=== PATIENT | male | born 1985 | race Asian ===

== ENCOUNTER 2025-02-01 13:43 | Emergency (ER) | payer BC ==
[2025-02-01] MEDS ORDERED: ACETAMINOPHEN TAB 500 MG TAB PO STA (13:58)
[2025-02-01] MEDS: KETOROLAC 15 MG/ML 1 ML VIAL IM STA (14:05)
--- NOTE | 2025-02-01 14:07 | ED ---
General Adult HPI - General Chief complaint: Extremity Injury, Lower Stated complaint: Fall-Left Knee Pain Time Seen by Provider: 02/01/25 13:46 Source: patient, EMS, RN notes reviewed Mode of arrival: EMS Limitations: no limitations - History of Present Illness Initial comments: 39-year-old male presenting to the emergency department via EMS for complaints of left knee pain. Patient states that he was swinging on a swing set when he realized that his child was running behind him and instead of hitting his child he jumped off of the swing and relatively high height and landed on both of his knees. She states that when he landed he felt a popping sensation in his left knee. He denies falling, hitting his head, or loss of consciousness. Denies blood thinner use. States that he has not attempted to walk since the injury. - Related Data Allergies Allergy/AdvReac Type Severity Reaction Status Date / Time No Known Allergies Allergy Verified 02/01/25 13:58 Review of Systems ROS Statement: Those systems with pertinent positive or pertinent negative responses have been documented in the HPI. ROS Other: All systems not noted in ROS Statement are negative. Past Medical History Past Medical History: No Reported History History of Any Multi-Drug Resistant Organisms: None Reported Additional Past Surgical History / Comment(s): torn ligament repair in left pinky finger Past Psychological History: No Psychological Hx Reported Smoking Status: Former smoker Past Alcohol Use History: Occasional Past Drug Use History: None Reported General Exam Limitations: no limitations General appearance: alert, in no apparent distress ENT exam: Present: normal exam, mucous membranes moist Neck exam: Present: normal inspection. Absent: tenderness, meningismus, lymphadenopathy Respiratory exam: Present: normal lung sounds bilaterally. Absent: respiratory distress, wheezes, rales, rhonchi, stridor Cardiovascular Exam: Present: regular rate, normal rhythm, normal heart sounds. Absent: systolic murmur, diastolic murmur, rubs, gallop, clicks GI/Abdominal exam: Present: soft, normal bowel sounds. Absent: distended, tenderness, guarding, rebound, rigid Left Knee exam: Present: tenderness, swelling. Absent: full ROM, ecchymosis, deformity, crepitus, dislocation, erythema Neurovascular tendon exam: Present: no vascular compromise. Absent: pulse deficit Gait: not tested/not observed Back exam: Present: normal inspection Neurological exam: Present: alert, oriented X3, CN II-XII intact Course Vital Signs 02/01/25 02/01/25 13:48 15:04 Temperature 98.8 F Pulse Rate 80 72 Respiratory 17 17 Rate Blood Pressure 132/91 135/89 O2 Sat by Pulse 99 98 Oximetry Medical Decision Making - Medical Decision Making Was pt. sent in by a medical professional or institution (, [facility], [facility], urgent care, hospital, or fci...) When possible be specific @ -No Did you speak to anyone other than the patient for history (EMS, parent, family, police, friend...)? What history was obtained from this source @ -No Did you review nursing and triage notes (agree or disagree)? Why? @ -I reviewed and agree with nursing and triage notes Were old charts reviewed (outside hosp., previous admission, EMS record, old EKG, old radiological studies, urgent care reports/EKG's, fci records)? Report findings @ -No old charts were reviewed Differential Diagnosis (chest pain, altered mental status, abdominal pain women, abdominal pain men, vaginal bleeding, weakness, fever, dyspnea, syncope, headache, dizziness, GI bleed, back pain, seizure, CVA, palpatations, mental health, musculoskeletal)? @ -Differential Musculoskeletal Muscular strain, contusion, ligament sprain, fracture, arthritis, septic arthritis, bursitis, cellulitis, muscle spasm, nerve compression, DVT, arterial occlusion, herpes zoster, electrolyte abnormality, tumor.... This is not meant to be in all inclusive list EKG interpreted by me (3pts min.). @ -None X-rays interpreted by me (1pt min.). @ -X-ray of the left knee reveals a lateral tibial plateau fracture with 9 mm of displacement extension into the metaphysis CT interpreted by me (1pt min.). @ -None done U/S interpreted by me (1pt. min.). @ -None done What testing was considered but not performed or refused? (CT, X-rays, U/S, labs)? Why? @ -None What meds were considered but not given or refused? Why? @ -None Did you discuss the management of the patient with other professionals (professionals i.e. , [facility], [facility], lab, RT, psych nurse, social services counselor, iron bender, teacher, toxics program officer, rn case management)? Give summary @ -I spoke with on-call web application dev specialist, Dr. Sanchez, was recommended transfer to a trauma facility for further evaluation and treatment of the tibial plateau fracture. I spoke with Dr. Gil, at [facility], who has agreed to accept the patient as a transfer for further evaluation of a tibial plateau fracture. Was smoking cessation discussed for >3mins.? @ -No Was critical care preformed (if so, how long)? @ -No Were there social determinants of health that impacted care today? How? (Homelessness, low income, unemployed, alcoholism, drug addiction, transportation, low edu. Level, literacy, decrease access to med. care, [facility], rehab)? @ -No Was there de-escalation of care discussed even if they declined (Discuss DNR or withdrawal of care, Hospice)? DNR status @ -No What co-morbidities impacted this encounter? (DM, HTN, Smoking, COPD, CAD, Cancer, CVA, ARF, Chemo, Hep., AIDS, mental health diagnosis, sleep apnea, morbid obesity)? @ -None Was patient admitted / discharged? Hospital course, mention meds given and route, prescriptions, significant lab abnormalities, going to OR and other pertinent info. @ -Transferred. 39-year-old male presenting with left knee pain. Left knee is edematous on exam tenderness to the lateral knee. Unable to assess full range of motion. Pedal pulses 2+. Left lower extremity is warm to the touch. Patient's provided with IM dose of Toradol for pain relief. X-ray imaging is concerning for a Lateral tibial plateau fracture with 9 mm displacement and extension into the metaphysis. extension service specialist in charge, Dr. Sanchez, recommends transfer to trauma facility for further treatment. I spoke with ER attending at [facility], Dr. Gil, was agreed to accept the patient as a transfer for further evaluation. Case was discussed by attending Dr. Oneill. Patient is placed in an immobilizer prior to transfer. Patient is transferred via private vehicle. Undiagnosed new problem with uncertain prognosis? @ -No Drug Therapy requiring intensive monitoring for toxicity (Heparin, Nitro, Insulin, Cardizem)? @ -No Were any procedures done? @ -No Diagnosis/symptom? @ -Tibial plateau fracture Acute, or Chronic, or Acute on Chronic? @ -Acute Uncomplicated (without systemic symptoms) or Complicated (systemic symptoms)? @ -Uncomplicated Side effects of treatment? @ -No Exacerbation, Progression, or Severe Exacerbation? @ -No Poses a threat to life or bodily function? How? (Chest pain, USA, SC, pneumonia, PE, COPD, DKA, ARF, appy, cholecystitis, CVA, Diverticulitis, Homicidal, Suicidal, threat to staff... and all critical care pts) @ -No Disposition Clinical Impression: Tibial plateau fracture, left Disposition: OTHER INSTITUTION NOT DEFINED Condition: Serious Referrals: None,Stated [Primary Care Provider] - 1-2 days Forms: Area PCPs - Out of Hospital Transfer - Req. Specs Out of Hospital Transfer - Requested Specifics: Other Emergency Center ([facility])
--- NOTE | 2025-02-01 14:42 | XR ---
EXAMINATION TYPE: XR knee complete LT DATE OF EXAM: 02/01/2025 2:21 PM COMPARISON: None CLINICAL INDICATION: Male, 39 years old with history of pain, 'felt pop', swelling; PHH, pain TECHNIQUE: XR knee complete LT 3 views submitted. FINDINGS: There is a lateral tibial plateau intra-articular fracture with 9 mm displacement. Fracture lines extend into the metaphysis. Small joint effusion is present. IMPRESSION: Lateral tibial plateau fracture with 9 mm displacement and extension into the metaphysis. [facility], , 02/01/2025 2:40 PM
[2025-02-01 15:06] VITALS: BP 135/89; PULSE 72
[2025-02-01] MEDS: HYDROmorphone 0.5 MG/0.5 ML SYRINGE IM STA (15:47)
[2025-02-01 16:04] VITALS: RESP 16; TEMP 99.3
== END 2025-02-01 16:14 | disposition other institution (70) ==
LOC: EC 13:43
DX: S82.142A Displaced bicondylar fracture of left tibia, initial encounter for closed fracture (principal); Z87.891 Personal history of nicotine dependence; W22.8XXA Striking against or struck by other objects, initial encounter
CPT/HCPCS: 73562; 99284; 96372 ×2; L1830; J1885; J1171